=== PATIENT | male | born 1995 | race American Indian/Alaskan Native ===

== ENCOUNTER 2021-04-29 15:31 | Emergency (ER) | payer SELFPAY ==
--- NOTE | 2021-04-29 17:32 | Emergency Department Report ---
ED Rash HPI - HPI Chief Complaint: Skin Rash Stated Complaint: FACE BREAK OUT Time Seen by Provider: 04/29/21 17:25 Duration: 5 Days Location: Head Suspected Cause: Unknown Rash Symptoms: Yes Itching, No Facial Swelling, No Tongue/Oral Swelling, No Breathing Difficulties, No Choking Sensation, No Wheezing/Dyspnea, No Peeling, No Blistering, No Lightheaded Severity: mild ED Review of Systems ROS: Stated complaint: FACE BREAK OUT Other details as noted in HPI Constitutional: denies: chills, fever Eyes: denies: eye pain, eye discharge, vision change ENT: denies: ear pain, throat pain Respiratory: denies: cough, shortness of breath, wheezing Cardiovascular: denies: chest pain, palpitations Endocrine: no symptoms reported Gastrointestinal: denies: abdominal pain, nausea, diarrhea Genitourinary: denies: urgency, dysuria Musculoskeletal: denies: back pain, joint swelling, arthralgia Skin: denies: rash, lesions Neurological: denies: headache, weakness, paresthesias Psychiatric: denies: anxiety, depression Hematological/Lymphatic: denies: easy bleeding, easy bruising ED Past Medical Hx - Past Medical History Previous Medical History?: No Hx Hypertension: No - Social History Smoking Status: Never Smoker Substance Use Type: None - Medications Home Medications: Home Medications Medication Instructions Recorded Confirmed Last Taken Type Calamine/Zinc Oxide [Calamine 177 ml TP BID #1 04/29/21 Unknown Rx Lotion] Hydrocortisone 1% [Hydrocortisone 1 applicatio TP TID #1 tube 04/29/21 Unknown Rx 1% CREAM] Rash Exam - Exam General: Vital signs noted. No distress. Alert and acting appropriately. HEENT: No Periorbital Edema, No Conjuctival Injection, No Chemosis, No Perioral Edema, No Tongue Edema, No Uvular Edema, No Compromised Airway, No Drooling Lungs: Yes Good Air Exchange (Normal Breath Sounds), No Wheezes, No Ronchi, No Stridor, No Cough, No Labored Respirations, No Retractions, No Use of Accessory Muscles, No Other Abnormal Lung Sounds Heart: Yes Regular, No Murmur Skin: Yes Maculopapular Rash, Yes Erythema Other: Positive: Abdomen Normal, Neurologic Normal, Musculoskeletal Normal ED Course Vital Signs 04/29/21 04/29/21 04/29/21 16:01 16:41 16:42 Temperature 98.6 F 98.5 F Pulse Rate 94 H 88 Respiratory 16 18 Rate Blood Pressure 128/73 Blood Pressure 123/71 [Left] O2 Sat by Pulse 96 100 100 Oximetry Critical care attestation.: If time is entered above; I have spent that time in minutes in the direct care of this critically ill patient, excluding procedure time. ED Disposition Clinical Impression: Facial rash Disposition: HOME / SELF CARE / HOMELESS Is pt being admited?: No Does the pt Need Aspirin: No Condition: Stable Instructions: Priyanka, Adult Referrals: PRIMARY CARE, [Primary Care Provider] - 3-5 Days
[2021-04-29 17:38] VITALS: BP 125/67
== END 2021-04-29 17:36 | disposition home or self-care (01) ==
LOC: ED 15:31
DX: R21 Rash and other nonspecific skin eruption (principal)
CPT/HCPCS: 99282